=== PATIENT | female | born 1995 ===

== ENCOUNTER → 2017-08-13 | Outpatient (CLI) | payer OTHER ==
--- NOTE | 2017-08-13 13:00 | KCIC ---
PELVIS W/TV Clinical Indication: Right pelvic pain, history of right ovarian cyst. Comparison: None. TECHNIQUE: Real-time ultrasound imaging of the pelvis using transabdominal and transvaginal window is performed. Findings: Uterus measures 8 x 3.4 x 3.9 cm. No focal abnormality. There is trace fluid at the external cervical os. The endometrial stripe is normal measuring 1 mm. The IUD is in appropriate position. The ovaries are not identified transabdominally probably due to overlying bowel gas. Right ovary measures 3.9 x 2.4 x 3 cm. There is normal blood flow in the ovaries. The left ovary measures 2.5 x 1.5 x 3.2 cm. There are several small functional cysts in the bilateral ovaries. Largest on the right measures 2.2 cm. Largest on the left measures 1.1 cm. Mild pelvic free fluid. IMPRESSION: 1. Small bilateral functional ovarian cysts. 2. Mild pelvic free fluid. 3. IUD in appropriate position. Electronically signed by: Baldemar Pathak MD (08/13/2017 12:57 PM) [id number]
== END | disposition home or self-care (01) ==
LOC: KCIC US 12:39
PROVIDERS: ATTEND Obstetrics & Gynecology
DX: N83.201 Unspecified ovarian cyst, right side (principal); N83.202 Unspecified ovarian cyst, left side
CPT/HCPCS: 76830; 76856

== ENCOUNTER → 2021-05-30 | Outpatient (CLI) | payer BC, OTHER ==
--- NOTE | 2021-05-30 17:14 | RAD ---
EXAMINATION: US OB <14 WKS +TV, 05/30/2021 7:55 AM CLINICAL INDICATION: Dating and viability TECHNIQUE: Grayscale, color and spectral Doppler ultrasound images of the pelvis via first trimester OB protocol . COMPARISON: None. FINDINGS: The uterus measures 10.3 x 5.4 x 4.5 cm. There is a gestational sac containing an embryo with crown-r ump length of 1.31 cm, consistent with gestational age 7 weeks 4 days. A yolk sac is present. h eart rate is 145 bpm. Right ovary measures 3.6 x 2.7 x 1.7 cm. The left ovary measures 2.9 x 2.8 x 1.8 cm. Normal ovarian b lood flow bilaterally. No adnexal mass or free fluid. IMPRESSION: Single living intrauterine with gestational age 7 weeks 4 days. Electronically signed by: Zenaida Andersen MD (05/30/2021 5:12 PM) [id number]
== END ==
LOC: US 09:10
PROVIDERS: ATTEND Obstetrics & Gynecology
DX: Z34.91 Encounter for supervision of normal pregnancy, unspecified, first trimester (principal); Z3A.01 Less than 8 weeks gestation of pregnancy
CPT/HCPCS: 76801; 76817